=== PATIENT | male | born 1980 ===

== ENCOUNTER 2024-07-17 09:09 | Emergency (ER) | payer OTHER ==
[~2024-07-17] VITALS: Ht 165.1 cm; Wt 59.0 kg
[2024-07-17 09:11] VITALS: BP 121/62; PULSE 76; RESP 16; TEMP 96.9; O2SAT 99
[2024-07-17] MEDS ORDERED: BUPR1FIL3 SL (11:07)
== END 2024-07-17 12:10 | disposition home or self-care (01) ==
LOC: EMS 09:09
DX: F11.10 Opioid abuse, uncomplicated (principal); Z76.0 Encounter for issue of repeat prescription; Z88.0 Allergy status to penicillin
CPT/HCPCS: 99281; Z7502